=== PATIENT | female | born 1985 | race Hispanic/Latino ===

== ENCOUNTER 2022-01-07 08:28 | Day surgery (SDC) | payer OTHER, SELFPAY ==
[2022-01-07] MEDS ORDERED: hydrALAZINE 20 MG/ML VIAL SLOW IVP PRN ×3 (09:19→19:59)
[2022-01-07 09:46] VITALS: BMI 33.2
[2022-01-07] MEDS ORDERED: Lactated Ringer's 1,000 ML IV SCH ×2 (10:30→19:15)
[2022-01-07] MEDS ORDERED: Acetaminophen 500 MG TAB PO SCH (13:15)
[2022-01-07] MEDS ORDERED: Famotidine/PF 20 mg/2ml Vial SLOW IVP PRN (19:14)
[2022-01-07] MEDS ORDERED: Bicitra 30 ML UDCUP PO PRN (19:14)
[2022-01-07] MEDS ORDERED: Promethazine HCl 25 MG/ML VIAL IM PRN (19:14)
[2022-01-07] MEDS ORDERED: Ondansetron PF 4 MG/2 ML Vial IVP PRN (19:14)
[2022-01-07] MEDS ORDERED: Azithromycin 500 MG in Sodium Chloride 0.9% 250 ML 250 ML IVPB SCH (19:15)
[2022-01-07] MEDS ORDERED: Simethicone Chewable 80 MG TAB PO PRN (19:59)
[2022-01-07] MEDS ORDERED: Misoprostol 200 MCG TAB PR PRN (19:59)
[2022-01-07] MEDS ORDERED: HYDROcodone/Acetaminophen 5/325 mg Tablet PO PRN (19:59)
[2022-01-07] MEDS ORDERED: Methylergonovine 0.2 MG/ML VIAL IM PRN (19:59)
[2022-01-07] MEDS ORDERED: Zolpidem Tartrate 5 MG TAB PO PRN (19:59)
[2022-01-07] MEDS ORDERED: Lanolin Ointment 7 GM TUBE TOP PRN (19:59)
[2022-01-07] MEDS ORDERED: NS w/ Oxytocin 30 units 500 ML IV SCH (20:00)
[2022-01-07] MEDS ORDERED: Ferrous Sulfate 325 MG TAB PO SCH (21:00)
[2022-01-07] MEDS ORDERED: Docusate 100 MG CAP PO SCH (21:00)
[2022-01-08] MEDS ORDERED: Ibuprofen 800 MG TAB PO SCH (02:00)
[2022-01-08] MEDS ORDERED: Prenatal Vitamin 1 TAB PO SCH (09:00)
[2022-01-08] MEDS ORDERED: Boostrix 0.5 ML (Tdap) VIAL IM ONE (19:59)
== END 2022-01-07 13:28 | disposition home or self-care (01) ==
LOC: CSHLD/OP 08:28
PROVIDERS: ATTEND Obstetrics & Gynecology
DX: O47.03 False labor before 37 completed weeks of gestation, third trimester (principal); H53.8 Other visual disturbances; Z3A.35 35 weeks gestation of pregnancy
CPT/HCPCS: 81003; 81015; 87081; 99284

== ENCOUNTER 2022-01-07 18:38 | Inpatient (IN) | payer MEDICAID, OTHER, SELFPAY ==
[2022-01-07 14:35] LABS: Bilirubin Neg (Negative); Blood, Urine 250 (Negative); Clarity Clear (Clear); Glucose, Urine (Dipstick) Normal (Negative); Ketone, Urine Negative (Negative); Leukocyte Negative (Negative); Nitrite Negative (Negative); Protein, Urine (Dipstick) Negative (Neg-Trace)
[2022-01-07 14:46] LABS: Bacteria/HPF None Seen HPF (None Seen); Squamous Epithelial 0-3 HPF (0-3); WBC/HPF 0-3 HPF (0-3)
[2022-01-07] MEDS ORDERED: ePHEDrine Sulfate 50 MG/10 ML VIAL ONE (19:23)
[2022-01-07] MEDS ORDERED: PROPOFOL 20 ML ONE (19:23)
[2022-01-07] MEDS ORDERED: PHENYLEPHRINE-NS 100 MCG/ML 10 ML SYRINGE ONE (19:23)
[2022-01-07] MEDS ORDERED: Fentanyl 100 MCG/2 ML VIAL ONE ×3 (19:23→20:30)
[2022-01-07] MEDS ORDERED: Succinylcholine 200 MG/10 ml SYRINGE FS ONE (19:24)
[2022-01-07] MEDS ORDERED: Azithromycin 500 MG VIAL ONE (19:34)
[2022-01-07] MEDS ORDERED: Ketorolac Tromethamine 30 MG/ML VIAL ONE (19:55)
[2022-01-07 19:57] LABS: Critical Notified Whom: BROAN1
[2022-01-07 19:59] LABS: Critical Notified Whom: BROAN1; pH (Cord, venous) 7.094 (7.250-7.350)
[2022-01-07] MEDS ORDERED: Promethazine HCl 25 MG/ML VIAL ONE (19:59)
[2022-01-07] MEDS ORDERED: diphenhydrAMINE 50 MG/ML VIAL IVP PRN (20:15)
[2022-01-07] MEDS ORDERED: Fentanyl 100 MCG/2 ML VIAL SLOW IVP PRN (20:15)
[2022-01-07] MEDS ORDERED: Zolpidem Tartrate 5 MG TAB PO PRN (20:15)
[2022-01-07] MEDS ORDERED: fentaNYL Citrate/PF 1,000 MCG in Sodium Chloride 0.9% 30 ML IV PRN (20:15)
[2022-01-07] MEDS ORDERED: Promethazine HCl 25 MG/ML VIAL IM PRN ×2 (20:15→20:36)
[2022-01-07] MEDS ORDERED: diphenhydrAMINE 25 MG CAP PO PRN (20:15)
[2022-01-07] MEDS ORDERED: Communication Order-Pharmacy FS SCH (20:15)
[2022-01-07] MEDS ORDERED: Ondansetron HCl/PF 4 MG/2 ML Vial IVP PRN (20:15)
[2022-01-07] MEDS ORDERED: Ondansetron PF 4 MG/2 ML Vial IVP PRN ×2 (20:15→20:36)
[2022-01-07] MEDS ORDERED: diphenhydrAMINE 50 MG/ML VIAL IM PRN (20:15)
[2022-01-07] MEDS ORDERED: Naloxone HCl 0.4 mg/ml Vial IV PRN (20:15)
[2022-01-07] MEDS ORDERED: Meperidine HCl/PF 25 MG/ML VIAL SLOW IVP PRN (20:15)
[2022-01-07] MEDS ORDERED: Ketorolac Tromethamine 30 MG/ML VIAL IVP SCH (20:15)
[2022-01-07] MEDS ORDERED: hydrALAZINE 20 MG/ML VIAL SLOW IVP PRN (20:36)
[2022-01-07] MEDS ORDERED: Famotidine/PF 20 mg/2ml Vial SLOW IVP PRN (20:36)
[2022-01-07] MEDS ORDERED: Bicitra 30 ML UDCUP PO PRN (20:36)
[2022-01-07 20:38] VITALS: BMI 33.2
[2022-01-07 20:38] LABS: Syphilis Antibody Nonreactive (Nonreactive); Syphilis Antibody Index 0.03 S/CO (<1.00 Non-Reactive)
[2022-01-07] MEDS ORDERED: NS w/ Oxytocin 30 units 500 ML ONE (20:39)
[2022-01-07 20:42] LABS: Hep B Surf Ag Non-Reactive S/CO (NonReactive)
[2022-01-07 20:44] LABS: HBSAg Index 0.28 S/CO (0-0.99)
[2022-01-07 20:44] LABS: Hemoglobin 10.8 g/dL (12.0-15.5); Mean Corpuscular HGB CONC 35.4 g/dL (32.0-36.0); Mean Corpuscular Hemoglobin 31.4 pg (27.0-33.0); Mean Corpuscular Volume 88.7 fl (81.6-98.3); Mean Platelet Volume 10.3 fl (7.4-10.4); Platelet Count 259 10x3/uL (150-450); RBC Distribution Width 12.6 % (11.5-14.5); Red Blood Cell (RBC) Count 3.44 10x6/uL (3.90-5.03); White Blood Cell (WBC) Count 16.5 10x3/uL (3.5-10.5)
[2022-01-07] MEDS ORDERED: Azithromycin 500 MG in Sodium Chloride 0.9% 250 ML 250 ML IVPB SCH (20:45)
[2022-01-07] MEDS ORDERED: CEFAZOLIN 2 GM in Sodium Chloride 0.9% 100 ML IVPB SCH (21:00)
[2022-01-07 21:43] LABS: SARS-CoV-2 NAA Rapid Test Not Detected (NotDetected)
[2022-01-08] MEDS ORDERED: fentaNYL Citrate/PF 1,000 MCG in Sodium Chloride 0.9% 30 ML IV PRN (01:48)
[2022-01-08 01:49] LABS: Hemoglobin 11.2 g/dL (12.0-15.5); Mean Corpuscular HGB CONC 35.1 g/dL (32.0-36.0); Mean Corpuscular Hemoglobin 30.9 pg (27.0-33.0); Mean Corpuscular Volume 87.9 fl (81.6-98.3); Mean Platelet Volume 10.1 fl (7.4-10.4); Platelet Count 280 10x3/uL (150-450); RBC Distribution Width 12.5 % (11.5-14.5); Red Blood Cell (RBC) Count 3.63 10x6/uL (3.90-5.03); White Blood Cell (WBC) Count 22.7 10x3/uL (3.5-10.5)
[2022-01-08] MEDS ORDERED: HYDROmorphone 0.5 MG/0.5 ML SYRINGE SLOW IVP SCH (02:00)
[2022-01-08] MEDS: Lactated Ringer's 1,000 ML IV SCH ×2 (09:50→12:22)
[2022-01-08] MEDS ORDERED: HYDROcodone/Acetaminophen 5/325 mg Tablet PO PRN ×2 (12:34→13:08)
[2022-01-08] MEDS ORDERED: Ondansetron PF 4 MG/2 ML Vial IVP PRN (12:34)
[2022-01-08] MEDS ORDERED: Acetaminophen/Codeine 30-300mg Tablet PO PRN (12:34)
[2022-01-08] MEDS ORDERED: diphenhydrAMINE 25 MG CAP PO PRN (12:34)
[2022-01-08] MEDS ORDERED: hydrALAZINE 20 MG/ML VIAL SLOW IVP PRN (12:34)
[2022-01-08] MEDS: Ibuprofen 800 MG TAB PO SCH ×2 (13:33→21:18)
[2022-01-08] MEDS ORDERED: Simethicone Chewable 80 MG TAB PO PRN (14:05)
[2022-01-09 04:37] LABS: Hemoglobin 8.9 g/dL (12.0-15.5); Mean Corpuscular HGB CONC 35.2 g/dL (32.0-36.0); Mean Corpuscular Hemoglobin 31.6 pg (27.0-33.0); Mean Corpuscular Volume 89.7 fl (81.6-98.3); Mean Platelet Volume 10.3 fl (7.4-10.4); Platelet Count 239 10x3/uL (150-450); RBC Distribution Width 13.2 % (11.5-14.5); Red Blood Cell (RBC) Count 2.82 10x6/uL (3.90-5.03); White Blood Cell (WBC) Count 10.7 10x3/uL (3.5-10.5)
[2022-01-09] MEDS: Ibuprofen 800 MG TAB PO SCH ×3 (05:33→22:28)
[2022-01-09] MEDS: Prenatal Vitamin 1 TAB PO SCH (08:41)
[2022-01-09 13:40] LABS: #Eosinphils 0.1 10x3/uL (0.0-0.5); #Monocytes 0.4 10x3/uL (0.0-1.1); #Neutrophils 8.6 10x3/uL (1.5-8.4); %Basophils 0.2 % (0.0-2.0); %Eosinophils 0.8 % (0.0-6.0); %Lymphocytes 22.6 % (18.0-47.0); %Monocytes 3.6 % (0.0-10.0); %Neutrophils 72.5 % (40.0-75.0); Hemoglobin 9.2 g/dL (12.0-15.5); Mean Corpuscular HGB CONC 34.1 g/dL (32.0-36.0); Mean Corpuscular Hemoglobin 31.5 pg (27.0-33.0); Mean Corpuscular Volume 92.5 fl (81.6-98.3); Platelet Count 261 10x3/uL (150-450); RBC Distribution Width 13.2 % (11.5-14.5); Red Blood Cell (RBC) Count 2.92 10x6/uL (3.90-5.03); White Blood Cell (WBC) Count 11.8 10x3/uL (3.5-10.5)
[2022-01-09] MEDS ORDERED: Docusate 100 MG CAP PO PRN (21:47)
[2022-01-10] MEDS: Ibuprofen 800 MG TAB PO SCH ×2 (05:45→13:28)
[2022-01-10 08:38] VITALS: BP 138/76; TEMP 97.5
[2022-01-10] MEDS: Prenatal Vitamin 1 TAB PO SCH (09:28)
== END 2022-01-10 13:50 | disposition home or self-care (01) | DRG 786 ==
LOC: CSHLD/OP 18:38 → CSHLD 19:30 → CSHPED 01-08 11:07 → CSHPP 01-08 22:20
PROVIDERS: ADMIT Obstetrics & Gynecology; ATTEND Obstetrics & Gynecology
PROC: 10D00Z1 Extraction of Products of Conception, Low, Open Approach (ICD-10-PCS; principal; 2022-01-07)
DX: O60.14X0 Preterm labor third trimester with preterm delivery third trimester, not applicable or unspecified (principal); O45.93 Premature separation of placenta, unspecified, third trimester; Z3A.35 35 weeks gestation of pregnancy; Z37.0 Single live birth; Z20.822 Contact with and (suspected) exposure to COVID-19; O76 Abnormality in fetal heart rate and rhythm complicating labor and delivery; O32.8XX0 Maternal care for other malpresentation of fetus, not applicable or unspecified
CPT/HCPCS: 36415; 74176; 81003; 81015; 82805; 85027; 86780; 86850; 86900; 86901; 87081; 87340; J0456; J1170; J1885; J2550; J2590; J2704; J3010; J3490; U0002